=== PATIENT | female | born 1965 | race Caucasian/White ===

== ENCOUNTER 2020-05-05 13:35 | Emergency (ER) | payer OTHER ==
[~2020-05-05] VITALS: Ht 162.6 cm; Wt 61.2 kg
[2020-05-05] MEDS ORDERED: BUPIVACAINE HCL 0.25% 10ML MPF VIAL INJ ONE (14:00)
[2020-05-05] MEDS ORDERED: LIDOCAINE HCL 1% LOCAL INJ 20 ML VIAL INJ ONE (14:00)
== END 2020-05-05 15:21 | disposition home or self-care (01) ==
LOC: ER 14:12
DX: S61.211A Laceration without foreign body of left index finger without damage to nail, initial encounter (principal); W25.XXXA Contact with sharp glass, initial encounter; Y92.008 Other place in unspecified non-institutional (private) residence as the place of occurrence of the external cause; E78.5 Hyperlipidemia, unspecified; F41.9 Anxiety disorder, unspecified
CPT/HCPCS: 12001; 99282; J2001